=== PATIENT | female | born 1965 | race Caucasian/White ===

== ENCOUNTER 2017-05-07 09:37 | Inpatient (IN) | payer OTHER ==
[~2017-05-07] VITALS: Ht 157.5 cm; Wt 137.0 kg
[2017-05-07] MEDS ORDERED: ACET-1600 PO (10:35)
[2017-05-07 10:36] VITALS: BP 147/95
[2017-05-07] MEDS ORDERED: LACTATED RINGERS 1,000 ML IV SCH (10:36)
[2017-05-07] MEDS ORDERED: FENTANYL PF 250 MCG/5ML ONE (10:37)
[2017-05-07] MEDS ORDERED: MIDAZOLAM 1 MG/ML, 2ML ONE (10:37)
[2017-05-07] MEDS ORDERED: PLEASE ENTER ALLERGIES MC SCH ×2 (11:00)
[2017-05-07] MEDS ORDERED: PLEASE ENTER HEIGHT AND WEIGHT MC SCH (11:00)
[2017-05-07] MEDS ORDERED: EPINEPHRINE 1 MG/ML, 1ML ONE (11:21)
[2017-05-07] MEDS ORDERED: BUPIVACAINE/PF 0.5% ONE (11:21)
[2017-05-07] MEDS ORDERED: MEPERIDINE/PF 25MG/0.5ML IVPush PRN (11:30)
[2017-05-07] MEDS ORDERED: METOCLOPRAMIDE 5 MG/ML, 2ML IV PRN (11:30)
[2017-05-07] MEDS ORDERED: OXYcodone 5 MG/5 ML ORAL.SOL UDC PO PRN (11:30)
[2017-05-07] MEDS ORDERED: hydrALAzine 20 MG/ML, 1ML IV PRN (11:30)
[2017-05-07] MEDS ORDERED: ONDANSETRON 2MG/ML, 2ML IVPush PRN ×3 (11:30→21:30)
[2017-05-07] MEDS ORDERED: LABETALOL 5MG/ML, 20ML IV PRN (11:30)
[2017-05-07] MEDS ORDERED: PROMETHAZINE 25 MG/ML, 1ML IV PRN (11:30)
[2017-05-07] MEDS ORDERED: ROCURONIUM 10 MG/ML ONE (11:35)
[2017-05-07] MEDS ORDERED: GLYCOPYRROLATE 0.2MG/1ML ONE (11:35)
[2017-05-07] MEDS ORDERED: PROPOFOL 10 MG/ML, 20ML ONE (11:35)
[2017-05-07] MEDS ORDERED: ONDANSETRON 2MG/ML, 2ML ONE ×2 (11:35→13:21)
[2017-05-07] MEDS ORDERED: NEOSTIGMINE 1 MG/ML, 10ML ONE (11:35)
[2017-05-07] MEDS ORDERED: CEFAZOLIN 1,000 MG ONE (11:35)
[2017-05-07] MEDS ORDERED: ACETAMINOPHEN 325 MG/10.15 ML UDC ONE (13:15)
[2017-05-07] MEDS ORDERED: OXYcodone 5 MG/5 ML ORAL.SOL UDC ONE (13:15)
[2017-05-07] MEDS ORDERED: FENTANYL PF 100 MCG/2ML ONE (13:15)
[2017-05-07] MEDS: FENTANYL PF 100 MCG/2ML IV PRN ×2 (13:16→13:35)
[2017-05-07 13:28] LABS: BLOOD UREA NITROGEN 11 mg/dL (7-18)
[2017-05-07 13:35] LABS: ASPARTATE AMINO TRANSFERASE 66 U/L (15-37)
[2017-05-07] MEDS ORDERED: HYDROmorphone 1 MG/ML, 1ML ONE (13:41)
[2017-05-07] MEDS: HYDROmorphone 1 MG/ML, 1ML IV PRN ×4 (13:44→14:18)
[2017-05-07] MEDS ORDERED: ACETAMINOPHEN 325 MG TABLET PO PRN ×2 (14:00→21:00)
[2017-05-07 20:02] VITALS: BP 125/79
[2017-05-07] MEDS ORDERED: SODIUM CHLORIDE 0.9% 1,000 ML IV SCH (20:51)
[2017-05-07] MEDS ORDERED: HYDROmorphone 2 MG/ML, 1ML IVPush PRN (21:00)
[2017-05-07] MEDS ORDERED: ENALAPRILAT 1.25 MG/ML, 2ML IVPush PRN (21:00)
[2017-05-07] MEDS ORDERED: hydrALAzine 20 MG/ML, 1ML IVPush PRN (21:00)
[2017-05-07] MEDS ORDERED: HYDROmorphone 2 MG/ML, 1ML IV PRN (21:30)
[2017-05-07] MEDS ORDERED: KETOROLAC 30 MG/1 ML IV PRN (21:30)
[2017-05-07] MEDS ORDERED: DIPHENHYDRAMINE 50 MG/ML, 1ML IVPush PRN (21:30)
[2017-05-07] MEDS: OXYcodone IR 5MG TABLET PO PRN (21:34)
[2017-05-07] MEDS ORDERED: ENOXAPARIN 40 MG/0.4 ML SQ SCH (22:30)
[2017-05-07 23:20] VITALS: BP 138/75
[2017-05-08] MEDS ORDERED: MAGNESIUM SULFATE PMX 2GM/50ML 50 ML IV ONE (01:00)
[2017-05-08 03:15] VITALS: BP 115/60
[2017-05-08 06:09] LABS: ASPARTATE AMINO TRANSFERASE 54 U/L (15-37); BLOOD UREA NITROGEN 8 mg/dL (7-18)
[2017-05-08 06:43] VITALS: BP 105/68
[2017-05-08] MEDS ORDERED: OMNIPAQUE 350 MG/ML, 150 ML BOTTLE ONE (12:21)
[2017-05-08] MEDS: OXYcodone IR 5MG TABLET PO PRN (12:44)
[2017-05-08 12:57] VITALS: BP 103/68
[2017-05-08] MEDS ORDERED: HYDR-3240 PO (16:18)
[2017-05-08] MEDS ORDERED: DOCU-30 PO (16:19)
[2017-05-08] MEDS ORDERED: ONDA4TAB7 PO (16:24)
[2017-05-08] MEDS ORDERED: ENOXAPARIN 40 MG/0.4 ML SQ SCH ×2 (18:00)
== END 2017-05-08 16:34 | disposition home or self-care (01) | DRG 418 ==
LOC: MERGE 09:37 → OUT 09:37 → 4NOR 20:21 → OUT 20:51 → DCLOUNGE 05-08 16:20
PROVIDERS: ADMIT Surgery; ATTEND Surgery
PROC: 0FT44ZZ Resection of Gallbladder, Percutaneous Endoscopic Approach (ICD-10-PCS; principal; 2017-05-07 11:30)
DX: K80.20 Calculus of gallbladder without cholecystitis without obstruction (principal); Z68.43 Body mass index [BMI] 50.0-59.9, adult; E66.2 Morbid (severe) obesity with alveolar hypoventilation; Z82.5 Family history of asthma and other chronic lower respiratory diseases; Z82.49 Family history of ischemic heart disease and other diseases of the circulatory system; Z88.5 Allergy status to narcotic agent
CPT/HCPCS: 36415; 71020; 71275; 80053; 80061; 81003; 82962; 83036; 83735; 84439; 84443; 84703; 85025; 88304; 93005; J0171; J0690; J1170; J1650; J2250; J2405; J2704; J2710; J3010; J3490; Q9967; J1200; J3475; J7030; J7120